=== PATIENT | male | born 1930 | race Caucasian/White ===

== ENCOUNTER 2019-02-07 08:44 | Outpatient (CLI) | payer MEDICARE, OTHER ==
[2019-02-07] MEDS ORDERED: NONE PER PT (09:19)
== END 2019-02-07 23:59 | disposition home or self-care (01) ==
LOC: STAR 08:44
PROVIDERS: ATTEND Surgery
DX: K40.30 Unilateral inguinal hernia, with obstruction, without gangrene, not specified as recurrent (principal); I44.4 Left anterior fascicular block
CPT/HCPCS: 93005

== ENCOUNTER 2019-02-15 09:52 | Day surgery (SDC) | payer MEDICARE, OTHER ==
[~2019-02-15] VITALS: Ht 172.7 cm; Wt 87.7 kg
[~2019-02-15 09:52] MED LIST: BUPIVACAINE/PF-EPI 0.5% 1:200K ONE; NONE PER PT
[2019-02-15] MEDS ORDERED: LACTATED RINGERS 1,000 ML IV SCH (10:29)
[2019-02-15] MEDS ORDERED: FENTANYL PF 250 MCG/5ML ONE (12:32)
[2019-02-15] MEDS ORDERED: FENTANYL PF 100 MCG/2ML IV PRN (13:30)
[2019-02-15] MEDS ORDERED: ONDANSETRON ODT 8 MG PO PRN (13:30)
[2019-02-15] MEDS ORDERED: ONDANSETRON 2MG/ML, 2ML IV PRN (13:30)
[2019-02-15] MEDS ORDERED: OXYcodone 5 MG/5 ML ORAL.SOL UDC PO PRN (13:30)
[2019-02-15] MEDS ORDERED: HYDROmorphone 2 MG/ML, 1ML IVPush PRN (13:30)
[2019-02-15] MEDS ORDERED: ACETAMINOPHEN 325 MG TABLET PO PRN (13:30)
[2019-02-15] MEDS ORDERED: GLYCOPYRROLATE 0.2MG/1ML, 5ML ONE (13:45)
[2019-02-15] MEDS ORDERED: PROPOFOL 10 MG/ML, 20ML ONE (13:45)
[2019-02-15] MEDS ORDERED: LIDOCAINE-MPF 2% ,5ML ONE (13:45)
[2019-02-15] MEDS ORDERED: DEXAMETHASONE 4 MG/ML, 1ML ONE (13:45)
[2019-02-15] MEDS ORDERED: CEFAZOLIN 1,000 MG ONE (13:45)
[2019-02-15] MEDS ORDERED: ONDANSETRON 2MG/ML, 2ML ONE (13:45)
[2019-02-15] MEDS ORDERED: ACETAMINOPHEN 650 MG/20.3 ML UDC ONE (14:24)
[2019-02-15] MEDS ORDERED: OXYcodone 5 MG/5 ML ORAL.SOL UDC ONE (14:25)
== END 2019-02-15 15:55 | disposition home or self-care (01) ==
LOC: OUT 09:52
PROVIDERS: ATTEND Surgery
DX: K40.30 Unilateral inguinal hernia, with obstruction, without gangrene, not specified as recurrent (principal); Z98.890 Other specified postprocedural states; Z87.891 Personal history of nicotine dependence
CPT/HCPCS: 49507; C1729; C1781; J0690; J1100; J2405; J2704; J3010; J3490; J7120